=== PATIENT | male | born 1965 | race African-American/Black ===

== ENCOUNTER 2025-03-19 08:46 | Emergency (ER) | payer BC ==
--- OUTSIDE RECORDS SUMMARY | 2025-03-19 08:52 | XMS REPORT | Continuity of Care Document ---
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 DS:LEONIDAS/BANDAR./ PATIENT NAME: TRISH RIVERA Conf#: [id number]/DID#: [id number] Authenticated by PASTOR Francis On 01/23/2020 07:20:31 AM Authenticated by Abhay Knott MD On 01/23/2020 07:39:06 AM at 738 at 39 PATIENT NAME: TRISH RIVERA [facility] 2020-01-18 08:38:00 [facility] ([facility]) Clinical Note REPORT#:[id number] REPORT STATUS: Signed DATE:01/18/20 TIME: 837 PATIENT: TRISH RIVERA UNIT #: [id number] ROOM/BED: [address] : 64 AGE: 54 SEX: M ATTEND: Abhay Knott MD ADM AUTHOR: Zeina Easton * ALL edits or amendments must be made on the electronic/computer document * Clinical Note Note: He is feeling better. His hip pain is better and he did well with PT yesterday. He feels ready for discharge today. Last Documented: Result Date Time Pulse Ox 93 01/18 716 B/P 133/79 01/18 716 B/P Mean 96.9 01/18 716 O2 Delivery Room air 01/18 716 Temp 97.9 01/18 716 Pulse 67 01/17 0716 Resp 14 01/17 07 FiO2 32 01/17 0224 O2 Flow Rate 3.470342 01/17 0224 01/17 0700 01/16 2300 01/16 1500 Intake Total Output Total Balance Number Voids 1 3 Physical Exam A/A/O, walking in room dressings dry and intact Assessment/Plan s/p Rt STEPHANIE, POD 3 patient has made progress with PT he would like us to check testosterone levels prior to discharge plan for dc to home today at 0842 RPT #:[id number] END OF REPORT [facility] 2020-01-18 08:38:00 [facility]) Clinical Note REPORT#:[id number] REPORT STATUS: Signed DATE:01/18/20 TIME: 08 PATIENT: TRISH RIVERA UNIT #: [id number] ROOM/BED: [address] : 64 AGE: 54 SEX: M ATTEND: Abhay Knott MD ADM AUTHOR: Zeina Easton * ALL edits or amendments must be made on the electronic/computer document * Clinical Note Note: He is feeling better. His hip pain is better and he did well with PT yesterday. He feels ready for discharge today. Last Documented: Result Date Time Pulse Ox 93 01/17 0716 B/P 133/79 01/17 0716 B/P Mean 96.9 01/17 0716 O2 Delivery Room air 01/17 0716 Temp 97.9 01/17 0716 Pulse 67 01/17 0716 Resp 14 01/17 0716 FiO2 32 01/17 0224 O2 Flow Rate 3.759672 01/17 0224 01/17 0700 01/16 2300 01/16 1500 Intake Total Output Total Balance Number Voids 1 3 Physical Exam A/A/O, walking in room dressings dry and intact Assessment/Plan s/p Rt STEPHANIE, POD 3 patient has made progress with PT he would like us to check testosterone levels prior to discharge plan for dc to home today at 0842 at 0947 RPT #:[id number] END OF REPORT [facility] 2020-01-17 10:10:00 [facility] ([facility]) Clinical Note REPORT#:[id number] REPORT STATUS: Signed DATE:01/17/20 TIME: 1010 PATIENT: TRISH RIVERA UNIT #: [id number] ROOM/BED: [address] : 64 AGE: 54 SEX: M ATTEND: Abhay Knott MD ADM AUTHOR: Zeina Easton * ALL edits or amendments must be made on the electronic/computer document * Clinical Note Note: Doing well, advanced wwell with PT Last Documented: Result Date Time Pulse Ox 97 01/16 0800 FiO2 32 01/16 0800 O2 Delivery Nasal cannula 01/16 0800 O2 Flow Rate 3.604809 01/16 0800 B/P 143/83 01/16 0703 B/P Mean 103.2 01/16 0703 Temp 97.2 01/16 0703 Pulse 60 01/16 0703 Resp 16 01/16 0703 01/16 0700 01/15 2300 01/15 1500 Intake Total 142.00 Output Total Balance 142.00 Intake, IV 142.00 Number Voids 2 Dressings dry and intact Assessment/Plan s/p Rt STEPHANIE, POD 2 plan for dc to home today at 1011 RPT #:[id number] END OF REPORT [facility] 2020-01-17 10:10:00 [facility] ([facility]) Clinical Note REPORT#:[id number] REPORT STATUS: Signed DATE:01/17/20 TIME: 1010 PATIENT: TRISH RIVERA UNIT #: [id number] ROOM/BED: [address] : 64 AGE: 54 SEX: M ATTEND: Abhay Knott MD ADM AUTHOR: Zeina Easton * ALL edits or amendments must be made on the electronic/computer document * Clinical Note Note: Doing well, advanced wwell with PT Last Documented: Result Date Time Pulse Ox 97 01/16 0800 FiO2 32 01/16 0800 O2 Delivery Nasal cannula 01/16 0800 O2 Flow Rate 3.290306 01/16 0800 B/P 143/83 01/16 0703 B/P Mean 103.2 01/16 0703 Temp 97.2 01/16 0703 Pulse 60 01/16 0703 Resp 16 01/16 0703 01/16 0700 01/15 2300 01/15 1500 Intake Total 142.00 Output Total Balance 142.00 Intake, IV 142.00 Number Voids 2 Dressings dry and intact Assessment/Plan s/p Rt STEPHANIE, POD 2 plan for dc to home today at 1011 at 1641 RPT #:[id number] END OF REPORT [facility] 2020-01-16 11:24:00 [facility] ([facility]) Clinical Note REPORT#:[id number] REPORT STATUS: Signed DATE:01/16/20 TIME: 1124 PATIENT: TRISH RIVERA UNIT #: [id number] ROOM/BED: [address] : 64 AGE: 54 SEX: M ATTEND: Abhay Knott MD ADM AUTHOR: Kamilah Meadows GUEST RELATIONS MANAGER * ALL edits or amendments must be made on the electronic/computer document * Clinical Note Note: S: Doing well O: AAOx4 Lungs CTA-bilat, No SOB Abd soft, BS+, No N/V Right hip dressing c/d/i, DP+, DF/PF 5/5, no calf pain Vital Signs: Date Time Temp Pulse Resp B/P B/P Pulse O2 O2 Flow FiO2 Mean Ox Delivery Rate 01/15 1113 36.2 76 16 117/65 82 97 Room air 01/15 0820 99 Nasal 3.163598 32 cannula 01/15 0735 Nasal 3.492526 100 cannula 01/15 0720 36.1 76 16 119/71 86.9 98 Nasal cannula 01/15 0352 35.2 76 16 118/63 81.0 100 01/15 0218 69 98 3.920966 32 01/15 0218 98 CPAP 3.985510 32 Laboratory Tests 01/15 0400 Chemistry Sodium (136 - 145 mmol/L) 143 Potassium (3.5 - 5.1 mmol/L) 5.3 H Chloride (98 - 107 mmol/L) 104.0 Carbon Dioxide (21 - 32 mmol/L) 32.5 H BUN (7 - 18 mg/dL) 26 H Creatinine (0.55 - 1.30 mg/dL) 1.22 Glomerular Filtr Rate (>60) 74.7 Glucose (70 - 110 mg/dL) 111 H Calcium (8.2 - 10.1 mg/dL) 8.4 Laboratory Tests 01/15 0400 Hematology Hgb (12 - 16 g/dL) 11.8 L Hct (37 - 47 %) 38.0 A/P: s/p R STEPHANIE, POD#1 PMH: HTN, hyperlipidemia, OA, TIM, WPW, BMI 40.4 admitted as inpatient to monitor above comorbidities pain well controlled tolerating po food well mobilize w/ PT/OT case management for dc needs ASA 81 mg bid for dvt prophylaxis Doxycyline Rx written for extended antibiotic prophylaxis Remove dressing on January 21 Fup w/ Dr. Knott in 10-14 days patient would like to focus on safety and work w/ PT Will stay overnight at 1413 RPT #:[id number] END OF REPORT [facility] 2020-01-16 11:24:00 [facility] ([facility]) Clinical Note REPORT#:[id number] REPORT STATUS: Signed DATE:01/16/20 TIME: 1123 PATIENT: TRISH RIVERA UNIT #: [id number] ROOM/BED: [address] : 64 AGE: 54 SEX: M ATTEND: Abhay Knott MD ADM AUTHOR: Kamilah Meadows NP * ALL edits or amendments must be made on the electronic/computer document * Clinical Note Note: S: Doing well O: AAOx4 Lungs CTA-bilat, No SOB Abd soft, BS+, No N/V Right hip dressing c/d/i, DP+, DF/PF 5/5, no calf pain Vital Signs: Date Time Temp Pulse Resp B/P B/P Pulse O2 O2 Flow FiO2 Mean Ox Delivery Rate 01/15 1113 36.2 76 16 117/65 82 97 Room air 01/15 0820 99 Nasal 3.919872 32 cannula 01/15 0735 Nasal 3.667593 100 cannula 01/15 0720 36.1 76 16 119/71 86.9 98 Nasal cannula 01/15 0352 35.2 76 16 118/63 81.0 100 01/15 0218 69 98 3.058250 32 01/15 0218 98 CPAP 3.679569 32 Laboratory Tests 01/15 0400 Chemistry Sodium (136 - 145 mmol/L) 143 Potassium (3.5 - 5.1 mmol/L) 5.3 H Chloride (98 - 107 mmol/L) 104.0 Carbon Dioxide (21 - 32 mmol/L) 32.5 H BUN (7 - 18 mg/dL) 26 H Creatinine (0.55 - 1.30 mg/dL) 1.22 Glomerular Filtr Rate (>60) 74.7 Glucose (70 - 110 mg/dL) 111 H Calcium (8.2 - 10.1 mg/dL) 8.4 Laboratory Tests 01/15 040 Hematology Hgb (12 - 16 g/dL) 11.8 L Hct (37 - 47 %) 38.0 A/P: s/p R STEPHANIE, POD#1 PMH: HTN, hyperlipidemia, OA, TIM, WPW, BMI 40.4 admitted as inpatient to monitor above comorbidities pain well controlled tolerating po food well mobilize w/ PT/OT case management for dc needs ASA 81 mg bid for dvt prophylaxis Doxycyline Rx written for extended antibiotic prophylaxis Remove dressing on January 21 Fup w/ Dr. Knott in 10-14 days patient would like to focus on safety and work w/ PT Will stay overnight at 1413 at 1641 RPT #:[id number] END OF REPORT [facility] 2020-01-15 15:40:00 [id number] [facility] [address] [place] [id number] PATIENT NAME: TRISH RIVERA ADMIT DATE: 01/15/20 ACCOUNT NO: [id number] ROOM NO: Y.519 AGE: 54 REPORT TYPE: OPERATIVE REPORT SEX: M ADMITTING PHYSICIAN:Abhay Knott MD ATTENDING PHYSICIAN:Abhay Knott MD OPERATION DATE: 01/15/2020 PREOPERATIVE DIAGNOSIS: Degenerative joint disease, right hip. POSTOPERATIVE DIAGNOSIS: Degenerative joint disease, right hip. PROCEDURE: Right total hip arthroplasty. SURGEON: Abhay Knott MD PRE K SPECIAL EDUCATION TEACHER: Zeina Easton PA-C ANESTHESIA: General anesthesia. ESTIMATED BLOOD LOSS: 300 mL. DRAINS: None. SPECIMENS: None. COMPLICATIONS: None. IMPLANTS: DePuy [place] sector 62-mm cup with a 35-mm screw and a neutral Altrx 40-mm inner-diameter liner; femoral stem Actis size 8 high offset, femoral head ceramic 40 mm diameter +5 mm length. FINDINGS: Severe arthritis with flattening of the femoral head with eburnation of the bone of femoral head and moderately large marginal osteophytes at the femoral head-neck junction. INDICATIONS FOR SURGERY: Right hip pain and arthritis. Treatment options were discussed with the patient who voiced understanding of the options and the planned procedure. The patient signed surgical consent informing the patient of the risk of infection, damage to nerves or blood vessels with loss of function, mechanical failure or loosening with need for revision surgery, blood clots possibly going to the lungs, possibly resulting in . These issues were discussed with the patient in the office prior to surgery as was the risk of intraoperative fracture and leg length inequality. No warranty or guarantee as to the outcome of the surgery was made. PROCEDURE IN DETAIL: The patient was identified in the preoperative holding area and all of the patient's questions were answered. This was performed PATIENT NAME: TRISH RIVERA before the patient received any sedation. The patient directed the surgeon to efe the appropriate surgical site in the preoperative holding area and the surgical site was appropriately marked. The patient was then sedated as appropriate under the care of the anesthesia service and was taken to the operating room. A timeout was performed by the circulating nurse with the anesthesia team prior to induction of anesthesia. The patient was then carefully positioned under the direction of the surgeon in the lateral decubitus position. The Wixson positioner was used to stabilize the pelvis in the lateral position with the anterior pad being placed on the symphysis pubis and the posterior pad being placed on the sacrum. Care was taken to avoid pressure on the down leg to avoid irritation or damage to the lateral femoral cutaneous nerve of the down leg. An axillary roll was placed and a belly roll was placed as necessary. The lights were positioned before the patient was prepped and draped. The patient's leg was then prepped and draped sterilely. A surgical timeout was then performed initiated by the surgeon and led by the circulating nurse. It was confirmed that the correct side was marked, that the surgeon's initials were visible after draping, that x-rays were available and displayed with the patient's name on the radiographs, that all necessary instruments were available and had been sterilized appropriately, and that all potentially necessary implants were also available. Each member of the surgical team identified themselves and their role in the surgical procedure. After the surgical timeout was completed, the air barrier nozzle was placed distal to the planned skin incision. The skin incision was centered over the posterior aspect of greater trochanter with half of the incision anterior to the line connecting the tip and posterior aspect of greater trochanter and a half of it posterior to the line at an angle of approximately 45 degrees, angled from distal anterior to proximal posterior. The skin incision, from 10 to 14 cm depending on the patient's amount of adipose tissue and size of musculature, was carried through the skin and subcutaneous tissues and hemostasis was obtained prior to incising the fascia james. The fascia james was then carefully incised in line with the skin incision while the hip was abducted using electrocautery. After the fascia james was pierced distally, the surgeon's index finger was placed underneath the fascia and the remaining fascia james and fibers of the gluteus chantal were carefully dissected under direct visualization. The Charnley retractor was then placed under the anterior and posterior leaves of the incised fascia james and gluteus chantal muscle bellies. The lateral and posterior aspect of the hip joint was then visualized. The leg was placed in internal rotation. The bursa was incised over the posterior aspect of greater trochanter. The piriformis tendon was then identified by palpation and direct visualization. The vein overlying the piriformis was coagulated using electrocautery and the gluteus medius and minimus tendons were protected using a Cobra retractor. The posterior capsule was then incised beginning at the quadratus femoris and extending proximally along the posterior and to the posterior-superior aspect of greater trochanter up to the line of the piriformis. The piriformis was carefully dissected away from the underlying muscular tissue and the superior capsule was cut transversely to create an L-shaped posterior-superior capsular flap. The piriformis and conjoint tendon of the short external rotators were taken off in continuity with the capsule exposing the hip joint. Hemostasis was then obtained coagulating the capsular vessels. The hip was then dislocated with external rotation and the proximal femur was exposed. Fibrofatty tissue was removed from the piriformis fossa using electrocautery. PATIENT NAME: TRISH RIVERA The femoral neck was then resected according to preoperative plan using a reciprocating saw, taking care to protect the tissues medial to the femoral neck. The femoral head was then passed to the back table and discarded or sent as a specimen as appropriate at the end of the case. Hemostasis was again obtained. The acetabulum was then exposed placing an angled narrow Hohmann retractor anteriorly over the labrum and underneath the capsule, taking care to place the retractor underneath the psoas muscle to avoid injury to the femoral nerve. A posterior retractor was then placed within the posterior capsule outside of the posterior labrum and the hip joint was exposed. Hemostasis was again obtained using electrocautery. The fibrofatty tissue from the acetabular fossa was then excised purely using electrocautery under direct visualization. The obturator artery was coagulated. The labrum was then excised using a long handled knife. Any soft tissue remaining within the acetabulum was removed to prepare the acetabulum for reaming. Acetabular reaming was then performed beginning 5 mm beneath the templated size of the acetabulum and progressing in 2 mm increments up to 1 mm beneath the size of the acetabular implant. The acetabulum was initially reamed down to the true floor of the acetabulum and the larger reamers were used until the anterior and posterior columns were contacted by the reamers and bleeding cancellous bone was obtained in all quadrants of the acetabulum. After this had occurred, the acetabular component was then impacted into place in 45 degrees of abduction, 25 degrees of anteversion. It was confirmed through the positioning hole and screw holes that the acetabular component was bottomed out. Screws were placed in the acetabulum as necessary depending on the patient's bone quality. If a screw was placed, a trial acetabular liner was placed; however, if screw placement was not necessary, the actual acetabular liner was then carefully impacted into place. Complete seating of the acetabular liner was confirmed with palpation and direct visualization. It was also confirmed that there was no overhang of the acetabular component anteroinferiorly, so that iliopsoas tendon impingement could be avoided. Prior to moving to the proximal femur, any overhanging acetabular osteophytes from the anterior, inferior, posterior margins were removed using a half-inch curved osteotome. A Ray-Viviana was then placed within the acetabulum and attention was turned to the proximal femur. The proximal femur was then exposed by externally rotating the leg and using a Lacy retractor underneath the cut anterior neck of the femur. The proximal femur was prepared for the implant by using a box osteotome to remove bone from the shoulder to allow lateralization of the broaches. For the S-ROM or Narka stems, cylindrical reamers were used followed by broaches for the Narka stem and sleeve reamers for the S-ROM stem. For the Actis and Corail stem, broaches only were utilized starting with small broaches and progressing up to the point that contact was made with the anterior and posterior or medial lateral femur or both. When the broach was felt to be stable and the appropriate size, an intraoperative x-ray was obtained using the templated standard or high offset femoral neck and length of femoral head as templated. The Ray-Viviana was removed from the acetabulum before the reduction of the trial femur into the acetabular component was performed. Adequate stability and range of motion of the hip was verified by testing range of motion including flexion, abduction and internal rotation and extension and external rotation. When the trial implants were in place and while waiting for the intraoperative x-ray, two #5 Ethibond sutures were placed in the posterior and superior femoral capsule. Offset was checked by verifying that the posterior capsule could be reduced to the posterior aspect of greater trochanter anatomically. The tension in the soft tissues of the hip was also assessed by ranging the hip and this was compared with the tension in PATIENT NAME: TRISH RIVERA the hip under anesthesia prior to surgery. Thus, the offset and length of the implant and placement of the implant to effect the leg length was chosen based on multiple factors including the preoperative planning, intraoperative x-ray, and soft tissue tension Intraoperative x-ray, AP hips, was then analyzed. A line to facilitate determination of leg length was drawn using the ischial tuberosities as a reference point and as needed the teardrops were also used as a reference point. Any necessary adjustments to the leg lengths were then made as well as adjustments to the size of the femoral implants and position of the femoral implants. Appropriate positioning of the acetabular component was also confirmed and any necessary adjustments were made at that time. The femoral implant was then impacted in approximately 15 to 20 degrees of anteversion. Appropriate stability was confirmed as was the lack of fractures. The trunnion of the femoral implant was then carefully cleaned and the femoral head was impacted into place. The femoral head was then carefully reduced into the acetabulum using a lever around the femoral neck to avoid contact between the femoral head and the edge of the acetabular component to avoid any scraping or scuffing of the femoral head. . The posterior capsule was then reattached to posterior aspect of greater trochanter through drill holes using the two #5 Ethibond sutures. The hip was then injected with the periarticular block, which included 60 mL of 0.5% ropivacaine with epinephrine or the appropriate amount based on the patient's weight. The wound was then soaked with dilute Betadine for approximately 90 seconds and then was thoroughly cleaned using up to 3 liters of saline using pulsatile lavage. Fascia james was then repaired using #1 Vicryl. Subcutaneous tissues were meticulously closed in layers using 0 and 2-0 Vicryl. The skin was then closed using Dermabond. A sterile dressing was then placed over the hip. The patient was then awoken and care was taken to maintain the leg in abduction as the patient was carefully transferred by the surgical team to the stretcher and taken to postanesthetic care unit in stable condition. POSTOPERATIVE PLAN: Weightbearing as tolerated with posterior dislocation precautions for 6 weeks. The skilled assistance of Zeina Easton PA-C was necessary during this surgical procedure. She assisted with every aspect of the operation including, but not limited to, proper and safe positioning of the patient, obtaining adequate surgical exposure, manipulation of surgical instruments, the delicate task of the continual process of hemostasis during the procedure. She is responsible for proper and safe manipulation of the surgical leg to allow visualization for me during surgery. Her meticulous multi-layer closure of the surgical wound closure is essential to proper wound healing and the reduction of post-operative infections and drainage. Her assistance allowed me to perform the most sensitive and technical portions of this operation using 2 hands, thus enhancing patient safety. This would not be possible without the help of a skilled head start assistant teacher familiar with the procedure and capable of safely performing the aforementioned tasks. Our facility is not a teaching hospital and as such, no surgical residents or interns were available to assist. Dictated By: Abhya Knott MD WT: OP:LEONIDAS/ALLEN/NTS Conf#: [id number]/DID#: [id number] PATIENT NAME: TRISH RIVERA Authenticated by Abhay Knott MD On 01/16/2020 08:05:17 AM at 0805 PATIENT NAME: TRISH RIVERA [facility] 2020-01-15 09:13:00 [facility] ([facility]) Brief Op Note REPORT#:[id number] REPORT STATUS: Signed DATE:01/15/20 TIME: 912 PATIENT: TRISH RIVERA UNIT #: [id number] ROOM/BED: [facility]7 : 63 AGE: 54 SEX: M ATTEND: Abhay Knott MD ADM AUTHOR: Abhay Knott MD * ALL edits or amendments must be made on the electronic/computer document * Op/Inv Proc Note - Brief Pre-procedure diagnosis: DJD RT HIP Post-procedure diagnosis: same as pre procedure dx Procedures performed: RT STEPHANIE Primary Surgeon: ABHAY KNOTT MD Tent Worker(s): ZEINA EASTON PA-C Anesthesia: general anesthesia Findings: DJD RT HIP Complications: none Estimated blood loss in ml's: 300 Specimens removed/altered: none at 0914 RPT #:[id number] END OF REPORT [facility] 2020-01-08 11:23:00 [id number] [address] PATIENT NAME: TRISH RIVERA KAITLIN ADMIT DATE: ACCOUNT NO: [id number] ROOM NO: AGE: 54 REPORT TYPE: ELECTROCARDIOGRAM SEX: M ADMITTING PHYSICIAN:Abhay Knott MD ATTENDING PHYSICIAN:Abhay Knott MD Order: [id number] Test Reason : PRE OP CLEARANCE HTN Test Date/Time Stamp: WedJan 08 2020 11:23:25 Blood Pressure : / mmHG Vent. Rate : 061 BPM Atrial Rate : 061 BPM P-R Int : 188 ms QRS Dur : 092 ms QT Int : 404 ms P-R-T Axes : 064 010 039 degrees QTc Int : 406 ms Normal sinus rhythm Normal ECG No previous ECGs available Confirmed by ROBBIE CASTILLO MD ([id number]) on 01/10/2020 2:20:59 PM Referred By: Abhay Knott Confirmed by:ROBBIE CASTILLO MD at 1421 PATIENT NAME: TRISH RIVERA [facility]
--- NOTE | 2025-03-19 09:20 | RAD REPORT ---
EXAMINATION: Head Brain Wo Cont CLINICAL INDICATION: Male, 59 years old.unsteady gait after THC TECHNIQUE: Axial CT images from the skull base to the vertex without intravenous contrast. Coronal an d sagittal reformatted images were created from the data set. One or more of the following dose reduction techniques were used: Automated exposure control, adjustment of the mA and/or kV according to patient size, and/or iterative reconstruction. Unless otherwise specified, incidental findings do not require dedicated imaging follow-up. [id number]. COMPARISON: No prior exams FINDINGS: INTRACRANIAL: No acute intracranial hemorrhage. No acute large vascular territory infarct. No hydroce phalus. No mass effect or midline shift. No significant white matter disease. VASCULATURE: No visualized abnormalities in the arteries or dural venous sinuses. SCALP/SKULL: No calvarial fracture identified. No acute soft tissue abnormality. SINUSES: The visualized paranasal sinuses are mostly clear. No significant mastoid fluid. Left fronta l sinus osteoid. IMPRESSION: No acute intracranial abnormality.
[2025-03-19 09:33] LABS: Absolute Lymphocytes (CBC) 1.2 K/uL (0.7-4.9); Hematocrit 45.7 % (39.6-49.0); Hemoglobin 14.4 g/dL (13.6-17.9); MCH 26.5 pg (27.0-35.0); MCHC 31.6 g/dL (32.0-36.0); MCV 83.9 fL (80-100); MPV 8.4 fL (7.6-11.3); Nucleated RBC Absolute Count 0.0 (0-0); Nucleated Red Blood Cells % 0.1 % (0-0); RBC Red Blood Cell Count 5.45 M/uL (4.33-5.43); White Blood Count 6.90 thou/uL (4.3-10.9)
[2025-03-19 09:55] LABS: ALT/SGPT 27.0 U/L (16-61); AST/SGOT 25.0 U/L (15-37); Albumin 3.7 g/dL (3.4-5.0); Albumin/Globulin Ratio 1.1 (1.1-1.8); Alkaline Phosphatase 47.0 U/L (45-117); Anion Gap 7.8 mEq/L (5.0-15.0); BUN Blood Urea Nitrogen 22.0 mg/dL (7-18); Bilirubin Indirect, Calculated 0.7 mg/dL (0.2-0.8); Globulin 3.4 g/dL (2.3-3.5); Glucose Level 122.0 mg/dL (74-106); Magnesium 2.5 mg/dL (1.6-2.4); Potassium 3.8 mEq/L (3.5-5.1); Troponin High Sensitivity 5.4 pg/mL (<58.9)
--- NOTE | 2025-03-19 13:27 | EDPHYS ---
Physician Documentation [facility] Name: Homer Tenorio Age: 59 yrs Sex: Male : 1965 Arrival Date: 03/19/2025 Time: 08:46 Bed 19 Private MD: ED Physician Casey Valenzuela HPI: 03/19 08:52 This 59 yrs old Black Male presents to ER via Unassigned with complaints of unsteady sp3 gait after THC 40 mg. 08:52 59-year-old male with history of hypertension (gets medicines from [facility] sp3 and does not see a regular GP) now presents to the ED with chief complaint unsteady gait. Patient took 2 THC Gummies yesterday evening totaling 40 mg of THC and he states caused him to go to sleep. He woke this morning feeling foggy and having an unsteady gait. 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 He denies any other symptoms including speech abnormality, numbness or tingling on one side or the other or focal deficit. He does states that he is unsteady on his feet when he walks. He activated EMS who have transported him to the ED. Vital signs are normal. ROS otherwise negative.. Historical: - Allergies: 09:01 No Known Allergies; jl7 - Home Meds: 09:01 amlodipine oral [Active]; Isosorbide Mononitrate Oral [Active]; jl7 - PMHx: 09:01 Hypertensive disorder; jl7 - Immunization history:: Adult Immunizations unknown. - Infectious Disease History:: Denies. - Social history:: Smoking status: unknown. ROS: 08:54 Constitutional: Negative for fever, chills, and weight loss, Eyes: Negative for injury, sp3 pain, redness, and discharge, ENT: Negative for injury, pain, and discharge, Neck: Negative for injury, pain, and swelling, Cardiovascular: Negative for chest pain, palpitations, and edema, Respiratory: Negative for shortness of breath, cough, wheezing, and pleuritic chest pain, Abdomen/GI: Negative for abdominal pain, nausea, vomiting, diarrhea, and constipation, Back: Negative for injury and pain, MS/Extremity: Negative for injury and deformity, Skin: Negative for injury, rash, and discoloration, Psych: Negative for depression, anxiety, suicide ideation, homicidal ideation, and hallucinations, Allergy/Immunology: Negative for hives, rash, and allergies, Endocrine: Negative for neck swelling, polydipsia, polyuria, polyphagia, and marked weight changes, Hematologic/Lymphatic: Negative for swollen nodes, abnormal bleeding, and unusual bruising, 08:54 All other systems are negative, Exam: 08:54 Constitutional: This is a well developed, well nourished patient who is awake, alert, sp3 and in no acute distress. Head/Face: Normocephalic, atraumatic. Eyes: Pupils equal round and reactive to light, extra-ocular motions intact. Lids and lashes normal. Conjunctiva and sclera are non-icteric and not injected. Cornea within normal limits. Periorbital areas with no swelling, redness, or edema. ENT: Nares patent. No nasal discharge, no septal abnormalities noted. External auditory canals are clear. Oropharynx with no redness, swelling, or masses, exudates, or evidence of obstruction, uvula midline. Mucous membranes moist. Neck: Trachea midline, no thyromegaly or masses palpated, and no cervical lymphadenopathy. Supple, full range of motion without nuchal rigidity, or vertebral point tenderness. No Meningismus. Chest/axilla: Normal chest wall appearance and motion. Nontender with no deformity. No lesions are appreciated. Cardiovascular: Regular rate and rhythm with a normal S1 and S2. No gallops, murmurs, or rubs. Normal PMI, no JVD. No pulse deficits. Respiratory: Lungs have equal breath sounds bilaterally, clear to auscultation and percussion. No rales, rhonchi or wheezes noted. No increased work of breathing, no retractions or nasal flaring. Abdomen/GI: Soft, non-tender, with normal bowel sounds. No distension or tympany. No guarding or rebound. No evidence of tenderness throughout. Back: No spinal tenderness. No costovertebral tenderness. Full range of motion. Skin: Warm, dry with normal turgor. Normal color with no rashes, no lesions, and no evidence of cellulitis. MS/ Extremity: Pulses equal, no cyanosis. Neurovascular intact. Full, normal range of motion. Psych: Awake, alert, with orientation to person, place and time. Behavior, mood, and affect are within normal limits. 08:54 Neuro: Patient with no focal neurologic deficits. Mildly unsteady on his gait but ambulatory., 09:46 ECG was reviewed by the Attending Physician. EKG demonstrates normal sinus rhythm at 93 sp3 bpm with multiple PVCs, normal intervals, normal axis and nonspecific diffuse ST subcutaneous without evidence of acute ischemia. Vital Signs: 08:57 BP 138 / 98; Pulse 104; Resp 17; Temp 98.3; Pulse Ox 100% ; Weight 131.54 kg; Height 5 jl7 ft. 10 in. ; Pain 0/10; 09:46 BP 139 / 81; Pulse 88; Resp 17; Pulse Ox 98% on 3 lpm NC; dd2 10:00 BP 131 / 85; Pulse 88; Resp 12; Pulse Ox 98% on 3 lpm NC; me1 11:00 BP 147 / 81; Pulse 77; Resp 10; Pulse Ox 99% on 3 lpm NC; me1 12:00 BP 146 / 88; Pulse 76; Resp 12; Pulse Ox 96% on 3 lpm NC; me1 13:00 BP 152 / 94; Pulse 83; Resp 12; Pulse Ox 98% ; me1 08:57 Body Mass Index 41.61 (131.54 kg, 177.8 cm) jl7 08:57 Pain Scale: Adult jl7 08:57 EMS REPORTED VITALS jl7 Suzette Coma Score: 09:46 Eye Response: to voice(3). Motor Response: obeys commands(6). Verbal Response: dd2 oriented(5). Total: 14. MDM: 08:51 Medical Screening Exam initiated sp3 08:55 Data reviewed: vital signs, nurses notes, EMS record, lab test result(s), EKG, sp3 radiologic studies. ED course: 59-year-old male with unsteady gait after THC consumption. Differential diagnosis includes THC induced symptoms, electrolyte abnormality, dehydration, other from oncological effect, and to a much lesser degree TIA/CVA spectrum. Will obtain CT scan of the head, general labs and general observation. Disposition pending workup and patient course.. 13:25 ED course: Patient now much more steady on his feet and ambulatory in no acute sp3 distress. He has dry mouth consistent with THC use. Will safely discharge him home at this time.. 03/19 08:51 Order name: Basic Metabolic Panel; Complete Time: 11:09 sp3 03/19 08:51 Order name: CBC with Diff; Complete Time: 11:09 sp3 03/19 08:51 Order name: Hepatic Function; Complete Time: 11:09 sp3 03/19 08:51 Order name: Magnesium; Complete Time: 11:09 sp3 03/19 08:51 Order name: Troponin High Sensitivity; Complete Time: 11:09 sp3 03/19 08:56 Order name: UDS sp3 03/19 08:51 Order name: CT Head Brain wo Cont; Complete Time: 09:21 sp3 03/19 08:51 Order name: Cardiac monitoring; Complete Time: 09:38 sp3 03/19 08:51 Order name: EKG - Nurse/Tech; Complete Time: 09:38 sp3 03/19 08:51 Order name: IV Saline Lock; Complete Time: 09:24 sp3 03/19 08:51 Order name: Labs collected and sent; Complete Time: 09:24 sp3 03/19 08:51 Order name: NPO; Complete Time: 09:24 sp3 03/19 08:51 Order name: O2 Sat Monitoring; Complete Time: 09:24 sp3 Administered Medications: No medications were administered Disposition Summary: 03/19/25 13:27 Discharge Ordered Notes: Location: Home sp3 Condition: Stable sp3 Diagnosis - THC side effect, deltoid side effect, near syncope sp3 Followup: sp3 - With: Private Physician - When: Upon discharge from the Emergency Department - Reason: If symptoms return, Continuance of care Discharge Instructions: - Discharge Summary Sheet sp3 - Preventing Marijuana Misuse sp3 Forms: - Medication Reconciliation Form sp3 - Antibiotic Education sp3 - Prescription Opioid Use sp3 - Patient Portal Instructions sp3 - Leadership Thank You Letter sp3 Signatures: Dispatcher [employer] EDMS Shari Lin RN RN jl7 Casey Valenzuela MD MD sp3 Corrections: (The following items were deleted from the chart) 08:52 08:52 BASIC METABOLIC PANEL+C.LAB.BRZ ordered. EDMS EDMS 08:52 08:52 CBC+H.LAB.BRZ ordered. EDMS EDMS 08:52 08:52 HEPATIC FUNCTION+C.LAB.BRZ ordered. EDMS EDMS 08:52 08:52 MAGNESIUM+C.LAB.BRZ ordered. EDMS EDMS 08:52 08:52 Troponin High Sensitivity+C.LAB.BRZ ordered. EDMS EDMS 08:52 08:52 Head Brain Wo Cont+CT.RAD.BRZ ordered. EDMS EDMS 08:55 08:54 Neuro: 59-year-old male with unsteady gait after THC consumption. Differential sp3 diagnosis includes THC induced symptoms, electrolyte abnormality, dehydration, other from oncological effect, and to a much lesser degree TIA/CVA spectrum. Will obtain CT scan of the head, general labs and general observation. Disposition pending workup and patient course., sp3
--- NOTE | 2025-03-19 13:27 | ER ---
Nurse's Notes [facility] Name: Homer Tenorio Age: 59 yrs Sex: Male : 1965 Arrival Date: 03/19/2025 Time: 08:46 Bed 19 Private MD: Diagnosis: THC side effect, deltoid side effect, near syncope Presentation: 03/19 08:57 Chief complaint: EMS states: Toned out for reported unsteady gate, difficulty speaking jl7 after taking 40mg THC gummies last night bought from a local convenience store. Coronavirus screen: At this time, the client does not indicate any symptoms associated with coronavirus-19. Ebola Screen: No symptoms or risks identified at this time. Initial Sepsis Screen: Does the patient meet any 2 criteria? No. Patient's initial sepsis screen is negative. Does the patient have a suspected source of infection? No. Patient's initial sepsis screen is negative. Risk Assessment: Do you want to hurt yourself or someone else? Patient reports no desire to harm self or others. Onset of symptoms is unknown. 08:57 Method Of Arrival: Ambulatory jl7 08:57 Acuity: OXANA 3 jl7 08:[address] Valenzuela this is not a code stroke. jl7 Triage Assessment: 09:01 General: Appears in no apparent distress. uncomfortable, Behavior is drowsy. Pain: jl7 Denies pain. Historical: - Allergies: 09:01 No Known Allergies; jl7 - Home Meds: 09:01 amlodipine oral [Active]; Isosorbide Mononitrate Oral [Active]; jl7 - PMHx: 09:01 Hypertensive disorder; jl7 - Immunization history:: Adult Immunizations unknown. - Infectious Disease History:: Denies. - Social history:: Smoking status: unknown. Screenin:46 [facility] ED Fall Risk Assessment (Adult) History of falling in the last 3 months, dd2 including since admission No falls in past 3 months (0 pts) Confusion or Disorientation Yes (5 pts) Intoxicated or Sedated Yes (3 pts) Impaired Gait No (0 pts) Mobility Assist Device Used No (0 pt) Altered Elimination No (0 pt) Score/Fall Risk Level 3 or more points = High Risk Oriented to surroundings, Maintained a safe environment, Educated pt \T\ family on fall prevention, incl call for assistance when getting out of bed, Assessed \T\ reinforced patient's understanding of fall precautions, Hourly rounding (assess needs \T\ fall precautionary measures) done, Used ambulatory aids as needed (educated on \T\ assisted with). Abuse screen: Denies threats or abuse. Denies injuries from another. Nutritional screening: No deficits noted. Tuberculosis screening: No symptoms or risk factors identified. Assessment: 09:02 Reassessment: pt to CT. 7 09:46 General: Appears in no apparent distress. obese, well nourished, Behavior is dd2 cooperative, appropriate for age, drowsy. Pain: Denies pain. Neuro: Level of Consciousness is obeys commands, lethargic, Oriented to person, place, time, situation, Appropriate for age Internal Medicine Specialist are equal bilaterally Moves all extremities. Gait is unsteady, Speech is slurred, Facial symmetry appears normal, Pupils are PERRLA, Intact Reports dizziness, SLURRED SPEECH . Cardiovascular: Denies chest pain, Patient's skin is warm and dry. Rhythm is sinus rhythm with unifocal PVCs. Respiratory: No deficits noted. Reports HX OF SLEEP APNEA Breath sounds are clear bilaterally. GI: No deficits noted. No signs and/or symptoms were reported involving the gastrointestinal system. Abdomen is obese, Abd is soft and non tender X 4 quads. : No deficits noted. No signs and/or symptoms were reported regarding the genitourinary system. EENT: No deficits noted. No signs and/or symptoms were reported regarding the EENT system. Derm: No deficits noted. No signs and/or symptoms reported regarding the dermatologic system. Musculoskeletal: Circulation, motion, and sensation intact. Range of motion: intact in all extremities. Vital Signs: 08:57 BP 138 / 98; Pulse 104; Resp 17; Temp 98.3; Pulse Ox 100% ; Weight 131.54 kg; Height 5 jl7 ft. 10 in. ; Pain 0/10; 09:46 BP 139 / 81; Pulse 88; Resp 17; Pulse Ox 98% on 3 lpm NC; dd2 10:00 BP 131 / 85; Pulse 88; Resp 12; Pulse Ox 98% on 3 lpm NC; me1 11:00 BP 147 / 81; Pulse 77; Resp 10; Pulse Ox 99% on 3 lpm NC; me1 12:00 BP 146 / 88; Pulse 76; Resp 12; Pulse Ox 96% on 3 lpm NC; me1 13:00 BP 152 / 94; Pulse 83; Resp 12; Pulse Ox 98% ; me1 08:57 Body Mass Index 41.61 (131.54 kg, 177.8 cm) jl7 08:57 Pain Scale: Adult jl7 08:57 EMS REPORTED VITALS jl7 Fowler Coma Score: 09:46 Eye Response: to voice(3). Motor Response: obeys commands(6). Verbal Response: dd2 oriented(5). Total: 14. ED Course: 08:47 Patient arrived in ED. bd 08:51 Casey Valenzuela MD is Attending Physician. sp3 09:00 Triage completed. jl7 09:01 Arm band placed on right wrist. jl7 09:02 CT Head Brain wo Cont In Process Unspecified. EDMS 09:24 Basic Metabolic Panel Sent. dd2 09:24 CBC with Diff Sent. dd2 09:24 Hepatic Function Sent. dd2 09:24 Magnesium Sent. dd2 09:24 Troponin High Sensitivity Sent. dd2 09:24 No provider procedures requiring assistance completed. Inserted saline lock: 20 gauge dd2 in right antecubital area, using aseptic technique. Blood collected. Flushed with 10 mL NS Missed attempt(s): 20 gauge Bleeding controlled, band aid applied, catheter tip intact. 09:38 Patient has correct armband on for positive identification. Bed in low position. Call dd2 light in reach. Side rails up X2. Client placed on continuous cardiac and pulse oximetry monitoring. NIBP monitoring applied. engineering document control clerk on. Door closed. Noise minimized. Pillow given. Verbal reassurance given. 09:38 Initial lab(s) drawn, by me, sent to lab. EKG done, by ED staff, reviewed by Casey Valenzuela MD. Oxygen administration via nasal cannula \T\ 3L/min. 10:00 Provided Education on: POC. Verbalized understanding.. me1 10:14 Stacy Prajapati, REYNA is Primary Nurse. me1 12:03 UDS Sent. me1 12:03 Urine collected: clean catch specimen, babak colored. me1 13:45 IV discontinued, intact, bleeding controlled, No redness/swelling at site. Pressure me1 dressing applied. Administered Medications: No medications were administered Medication: 09:46 VIS not applicable for this client. dd2 Outcome: 13:27 Discharge ordered by . sp3 13:45 Discharged to home ambulatory, me1 13:45 Condition: stable 13:45 Discharge instructions given to patient, Instructed on discharge instructions, follow up and referral plans. Demonstrated understanding of instructions, follow-up care, 13:45 Patient left the ED. me1 Signatures: Dispatcher [employer] EDMegan Renteria Jahala RN RN jl7 Casey Valenzuela MD MD sp3 Stacy Prajapati RN RN me1 MACHO MATTSON RN RN dd2
[2025-03-19 13:55] VITALS: TEMP 98.3
[2025-03-19 14:04] VITALS: BP 152/94; O2SAT 98
[2025-03-19 14:15] LABS: METHAMPHETAM NEGATIVE (NEGATIVE); THC Cannibis POSITIVE (NEGATIVE)
== END 2025-03-19 13:45 | disposition home or self-care (01) ==
LOC: ER 08:46
DX: R26.81 Unsteadiness on feet (principal); T40.715A Adverse effect of cannabis, initial encounter; R55 Syncope and collapse; I10 Essential (primary) hypertension
CPT/HCPCS: 36415; 70450; 80048; 80076; 80307; 83735; 84484; 85025; 93005; 99285